=== PATIENT | female | born 1985 | race Caucasian/White ===

== ENCOUNTER 2023-09-03 10:16 | Outpatient (CLI) | payer OTHER | END 2023-09-03 13:42 | disposition home or self-care (01) | LOC: NST 10:16 | PROVIDERS: ATTEND Obstetrics & Gynecology Maternal & Fetal Medicine | DX: Z34.93 Encounter for supervision of normal pregnancy, unspecified, third trimester (principal); Z3A.32 32 weeks gestation of pregnancy ==

== ENCOUNTER → 2023-10-05 | Outpatient (CLI) | payer OTHER ==
[~2023-10-05] MED LIST: IRON236 MG PO; PEPCID AC10 MG PO; PRENATABS RX T1 EACH PO
== END | disposition home or self-care (01) ==
LOC: NST 11:03
PROVIDERS: ATTEND Obstetrics & Gynecology Maternal & Fetal Medicine
DX: Z34.83 Encounter for supervision of other normal pregnancy, third trimester (principal)

== ENCOUNTER 2023-10-07 10:44 | Inpatient (IN) | payer OTHER ==
[~2023-10-07] VITALS: Ht 152.4 cm; Wt 90.3 kg
[2023-10-07] MEDS ORDERED: PRENATABS RX T1 EACH PO (11:13)
[2023-10-07] MEDS ORDERED: IRON236 MG PO (11:13)
[2023-10-07] MEDS ORDERED: PEPCID AC10 MG PO (11:14)
[2023-10-07 11:28] LABS: HEMATOCRIT 37.2 % (36.0-45.00); HEMOGLOBIN 12.4 g/dL (12.0-15.00); MEAN CELL VOLUME 84.2 fL (80.00-100.00); MEAN CORPUSCULAR HGB CONC 33.3 g/dl (32.0-36.0); PLATELET COUNT 307 K/uL (150-450); RED BLOOD COUNT 4.42 M/uL (4.00-6.00)
[2023-10-07 12:15] LABS: INR 0.94; PARTIAL THROMBOPLASTIN TIME 27.3 SECONDS (22.0-34.0); PROTHROMBIN TIME 9.9 SECONDS (9.0-11.5)
[2023-10-07 12:18] LABS: ALBUMIN 2.8 gm/dL (3.4-5.0); BILIRUBIN TOTAL 0.24 mg/dL (0.3-1.2); CALCIUM 9.5 mg/dL (8.5-10.1); CREATININE SERUM 0.59 mg/dL (0.55-1.02); GFR 114.69; GLOBULINA 3.8 G/DL (2.4-3.5); POTASSIUM 3.97 mEq/L (3.5-5.1); TOTAL PROTEIN 6.6 gm/dL (6.4-8.2)
[2023-10-22] MEDS ORDERED: METRONIDAZOLE/SODIUM CHLORIDE 500 MG/100 ML PIGGYBACK IV ONE (07:55)
[2023-10-22] MEDS ORDERED: CEFAZOLIN SODIUM 1,000 MG VIAL ONE (11:09)
[2023-10-22] MEDS ORDERED: CITRIC ACID/SODIUM CITRATE 30 ML BLIST.PACK PO ONE (11:11)
[2023-10-22] MEDS ORDERED: OXYTOCIN 10 UNITS/ML VIAL ONE ×2 (11:40→17:38)
[2023-10-22] MEDS ORDERED: ERYTHROMYCIN BASE 3.5 GM OINT...G. OP ONE (11:40)
[2023-10-22] MEDS ORDERED: ACETAMINOPHEN 325 MG TABLET PO PRN (12:45)
[2023-10-22] MEDS ORDERED: OXYTOCIN 1,000 ML IV SCH (12:45)
[2023-10-22] MEDS ORDERED: MEPERIDINE HCL/PF 50 MG/ML VIAL IM PRN (12:45)
[2023-10-22] MEDS ORDERED: ERYTHROMYCIN BASE 1 GM TUBE OP ONE (14:00)
[2023-10-22] MEDS ORDERED: CEFAZOLIN SODIUM 1,000 MG VIAL IV ONE (14:00)
[2023-10-22] MEDS ORDERED: OXYTOCIN 10 UNIT/ML (10ML) IV ONE (14:00)
[2023-10-23] MEDS ORDERED: OxyCODONE HCL/APAP UD (PERCOCET) PO PRN (08:15)
[2023-10-23 10:44] LABS: HEMATOCRIT 35.2 % (36.0-45.00); HEMOGLOBIN 11.8 g/dL (12.0-15.00); MEAN CELL VOLUME 84.4 fL (80.00-100.00); MEAN CORPUSCULAR HEMOGLOBIN 28.4 pg (27.00-32.0); MEAN CORPUSCULAR HGB CONC 33.6 g/dl (32.0-36.0); PLATELET COUNT 259 K/uL (150-450); RED BLOOD COUNT 4.16 M/uL (4.00-6.00)
[2023-10-24 08:56] LABS: HEMOGLOBIN 11.5 g/dL (12.0-15.00); MEAN CELL VOLUME 85.4 fL (80.00-100.00); MEAN CORPUSCULAR HEMOGLOBIN 28.2 pg (27.00-32.0); PLATELET COUNT 295 K/uL (150-450); RED CELL DISTRIBUTION WIDTH 17.8 % (11.5-14.5)
== END 2023-10-25 12:39 | disposition home or self-care (01) | DRG 788 ==
LOC: O/R 10-22 07:32 → OB/GYN 10-22 07:32
PROVIDERS: Obstetrics & Gynecology; ADMIT Obstetrics & Gynecology Maternal & Fetal Medicine; ATTEND Obstetrics & Gynecology Maternal & Fetal Medicine
PROC: 0DNW0ZZ Release Peritoneum, Open Approach (ICD-10-PCS; 2023-10-22)
PROC: 4A1HXCZ Monitoring of Products of Conception, Cardiac Rate, External Approach (ICD-10-PCS; 2023-10-22)
PROC: 10D00Z1 Extraction of Products of Conception, Low, Open Approach (ICD-10-PCS; principal; 2023-10-22 12:15)
DX: O34.211 Maternal care for low transverse scar from previous cesarean delivery (principal); O99.892 Other specified diseases and conditions complicating childbirth; N73.6 Female pelvic peritoneal adhesions (postinfective); Z3A.39 39 weeks gestation of pregnancy; Z37.0 Single live birth; Z20.822 Contact with and (suspected) exposure to COVID-19

== ENCOUNTER 2023-10-14 09:59 | Outpatient (CLI) | payer OTHER | END 2023-10-14 11:29 | disposition home or self-care (01) | LOC: NST 09:59 | PROVIDERS: ATTEND Obstetrics & Gynecology | DX: Z34.83 Encounter for supervision of other normal pregnancy, third trimester (principal) ==